=== PATIENT | female | born 1985 | race Caucasian/White ===

== ENCOUNTER 2020-09-12 21:15 | Emergency (ER) | payer MEDICAID, SELFPAY ==
[2020-09-12 21:16] VITALS: BP 122/60; PULSE 94; RESP 30; TEMP 36.2; O2SAT 99; BMI 21.4
--- NOTE | 2020-09-12 22:11 | ED.DCSUM_ITS ---
History of Present Illness Chief Complaint: Seizure Narrative: Patient is a 34-year-old female who states she was having a epileptic Tourette's seizure. On further history it sounds like she has a history of nonepileptic or psychogenic seizures. She had a stressful event. Her boyfriend's brother came over who they have had problems with in the past. She then was jerking and throwing herself back. She did respond to a cold towel. She states this has been intermittently going on for about an hour. She did previously see a psychiatrist or counselor in [place] but currently does not see anyone. She has not been diagnosed with epilepsy she is not on any antiepileptics. She otherwise denies any medical history or recent medical illness. Past Medical History - Allergies and Home Meds Allergies/Adverse Reactions: Allergies Penicillins Allergy (Verified 09/12/20 21:16) Angioedema Primary Care Physician: Jennyfer Woo,Out of [Primary Care Provider] - Past Medical History: - - Nonepileptic seizures Smoking Status: Current every day smoker Review of Systems All systems negative except as indicated General: Denies: Fever Eyes: Denies: Visual changes - bilaterally ENT: Denies: Bilateral ear pain Cardiovascular: Denies: Chest pain Respiratory: Denies: Dyspnea Gastrointestinal: Denies: Nausea, Vomiting Musculoskeletal: Denies: Myalgias, Arthralgias Skin: Denies: Rash Neurological: Denies: Headache Hematologic: Denies: Easy bruising Allergy: Denies: Uticaria Physical Exam Vital Signs/Narrative: Vital Signs Temp Pulse Resp BP Pulse Ox 09/12/20 21:16 97.2 F L 94 30 H 122/60 H 99 Inital Vital Signs reviewed: Yes General: Well nourished Head: Normocephalic Eyes: EOMI ENT: Moist mucous membranes Neck: Supple Cardiovascular: Regular rate Respiratory: No distress Abdomen: Soft Skin: Normal color Neurological: Alert, Oriented x3, Normal Strength, Normal Sensation, - - No focal or lateralizing neurological deficits Psychological: Normal affect Diagnostic/Tx/Re-eval - Medical Decision Making Patient has a normal exam is resting comfortably. No tics or myoclonic activity. I believe this was a psychogenic nonepileptic seizure. She was given Ativan here. She was given a referral to the counseling center and was discha rged home. She does understand to return for new or worsening symptoms. She is agreeable to this plan. ED Disposition - Plan for ED Patient: Disposition: Home or Assisted Living Diagnosis: Psychogenic nonepileptic seizure Instructions: ED Conversion Disdr Conversion Reac Referrals: [facility] Doctor,Out of [Primary Care Provider] - Counseling,Center [GROUP OF PHYSICIANS] -
[2020-09-12] MEDS: LORazepam 1 MG Tablet PO (22:25)
[2020-09-12 22:27] VITALS: BP 97/57; PULSE 77; RESP 16; O2SAT 98
[2020-09-12 22:41] LABS: Bedside Glucose 89 mg/dL (70-110)
== END 2020-09-12 22:36 | disposition home or self-care (01) ==
LOC: ED 22:30
PROVIDERS: Emergency Provider Emergency Medicine
DX: F44.5 Conversion disorder with seizures or convulsions (principal); F17.200 Nicotine dependence, unspecified, uncomplicated
CPT/HCPCS: 82962; 99284

== ENCOUNTER 2020-09-29 22:43 | Emergency (ER) | payer MEDICAID, SELFPAY ==
[2020-09-29 22:44] VITALS: BP 106/58; PULSE 70; RESP 18; TEMP 36.6; O2SAT 99; BMI 21.2
[2020-09-29] MEDS: Naproxen 500 MG Tablet PO (23:26)
[2020-09-29] MEDS: Phenazopyridine 95 MG Tablet 190 MG PO (23:26)
[2020-09-29 23:38] LABS: Color, Urine Yellow (Yellow); Glucose, Dipstick Normal (Normal); Internal QC Validated? YES +Cl - CLEAR BKGD; Ketone-Dipstick 5 mg/dl (Negative); Leukocyte Esterase-Dipstick 500 /ul (Negative); Nitrite-Dipstick Negative (Negative); Occult Blood-Urine 50 /ul (Negative); Pregnancy, Urine Negative Negative; Protein-Dipstick 100 mg/dl (Negative); Specific Gravity, Urine 1.025 (1.002-1.030); Urine Bilirubin Dipstick Negative (Negative); Urine Clarity Clear (Clear); Urine Urobilinogen 1 mg/dl (Normal)
--- NOTE | 2020-09-29 23:41 | ED.DCSUM_ITS ---
- ER Visit Summary Date of Service: 09/29/20 Chief Complaint: Abdominal pain and dysuria History of Present Illness: The patient is a 34 F with no primary care physician. She reports that she has lower abdominal pain began approximately week ago. Is a sharp pain is 1010 worsening to 10 currently. Is worsened by movement or picking up my youngest. Relieved by remaining still. She had nausea without vomiting. No diarrhea. Her last bowel was yesterday. She denies any blood in her stools or black tarry stools. Patient reports that she has had dysuria and frequency over the past 3 days. She just finished her menstrual cycle. However, she reports that it only lasted 3 days. She took a test and it was negative. Physical Examination: Vitals: Stable. Afebrile. General: Well-nourished and well-developed. Head: Normocephalic atraumatic. Neck: Supple, no lymphadenopathy. No JVD. Nontender. Cardiovascular: Regular rate and rhythm. No murmurs. Respiratory: No respiratory distress. Clear to auscultation bilaterally. Abdominal: Soft, mild suprapubic tenderness to palpation, nondistended, normal bowel sounds. No guarding, rebound, or peritoneal signs. Back: Nontender. Extremities: Nontender, no edema. Skin: Normal color, no rash. Neurologic: Alert and oriented ?3. Cranial nerves II through XII are intact. Normal strength and sensation. Psych: Normal affect. Test Results: Urgency test is negative. Urinalysis shows leukocytes, 10-25 white blood cells, 2+ bacteria. Gonorrhea and Chlamydia are pending. Emergency Department Course and Treatment: Patient was given naproxen and Azo p. o. She is resting comfortably. Patient is adamant that she has not been exposed to an STD. She does not want to wait for the results of the gonorrhea and chlamydia test. Treatment Plan: She will be discharged with 3 days of Cipro and Pyridium. Instructed to follow-up with [facility] in 3 to 5 days for another exam. Return to the emergency department for any worsening symptoms. Disposition: To home in improved and stable condition. Impression: 1. UTI. This note was generated with [employer] software. It may contain incorrect words, spelling, and punctuation that were not noted in review of the chart prior to signing ED Disposition - Plan for ED Patient: Instructions: ED Bladder Infection, Female (Adult) Prescriptions: Ciprofloxacin [Cipro] 500 mg PO BID #6 tablet Phenazopyridine HCl [Pyridium] 200 mg PO BID PRN PRN #10 tablet PRN Reason: Pain Referrals: [facility] [NON-STAFF] - 3-5 Days
[2020-09-30 00:01] LABS: Bacteria 2+ /hpf (None Seen); Red Blood Cells-Urine 0-5 SEEN /hpf (0-5); Squamous Epithelial Cells - UA 0-5 SEEN /hpf (5-10); Transitional Epithelial - Ur 0-5 SEEN /hpf (0-5); White Blood Cells 10-25 SEEN /hpf (0-5)
[2020-09-30 00:02] LABS: Mucous, Urine 2+ /hpf (<or=2+)
[2020-09-30] MEDS: Ciprofloxacin 500 MG Tablet PO (00:22)
[2020-09-30 00:23] VITALS: PULSE 94; RESP 16; O2SAT 100
[2020-09-30 01:29] LABS: Chlamydia Trachomatis by PCR Negative (Negative); Neisserai gonorrhoeae by PCR Negative (Negative); Probe Check PASS; Sample Adequacy Control PASS; Specimen Processing Control PASS
== END 2020-09-30 00:23 | disposition home or self-care (01) ==
LOC: ED 23:21
PROVIDERS: Emergency Provider Emergency Medicine
DX: N39.0 Urinary tract infection, site not specified (principal); F17.200 Nicotine dependence, unspecified, uncomplicated
CPT/HCPCS: 81001; 81025; 87491; 87591; 99283

== ENCOUNTER 2021-01-05 22:08 | Emergency (ER) | payer MEDICAID, SELFPAY ==
[2021-01-05 22:09] VITALS: BP 111/60; PULSE 63; RESP 18; TEMP 35.8; O2SAT 100; BMI 18.2
[2021-01-05 23:00] LABS: Mucous, Urine 0 SEEN /hpf (<or=2+)
--- NOTE | 2021-01-05 23:02 | ED.VIS.FEGU ---
HPI HPI - Female History of Present Illness Chief Complaint: Informant: patient Associated Symptoms Associated Symptoms: Positive for Frequency, Urgency and Missed Period; Negative for Dysuria and Hematuria Last known menstrual period: approx 11/24 Test: Positive and Negative Narrative Narrative: Patient states she missed her menstrual cycle, so she was concerned she is . She has done several urine test at home, some of them of been negative some of them positive. She states since I am on antibiotics for my trichomoniasis, I want to make sure I am not so it is safe to continue taking it. She denies any abdominal pain, vaginal bleeding or discharge now that she is on an antibiotic, she has some urinary frequency, no fevers, near syncopal symptoms, vomiting, or other systemic symptoms. PFSH PFS Medical History Anxiety Home Medications ciprofloxacin HCl 500 mg PO BID #6 tab 09/30/20 [Rx Last Taken Unknown] phenazopyridine 200 mg PO BID PRN PRN #10 tablet 09/30/20 [Rx Last Taken Unknown] Allergy/AdvReac Type Severity Reaction Status Date / Time Penicillins Allergy Angioedema Verified 09/29/20 22:47 Social History Smoking Status: Current every day smoker tobacco type: cigarettes ROS ROS ED Constitutional Constitutional ED: Denies chills or fever(s) Eyes Eyes: Denies change in vision or diplopia ENT ENT ED: Denies rhinorrhea or sore throat Cardiovascular Cardiovascular: Denies chest pain or palpitations Respiratory/Chest Respiratory/Chest: Denies cough or dyspnea Gastrointestinal Gastrointestinal: Denies abdominal pain, diarrhea, nausea or vomiting Genitourinary Genitourinary ED: Reports urinary frequency and urinary urgency; Denies dysuria or hematuria Musculoskeletal Musculoskeletal: Denies back pain or neck pain Integumentary Denies abscess or rash Neurologic Neurologic: Denies headache(s), paresthesias or weakness Psychiatric Psychiatric: Denies anxiety or suicidal thoughts EXAM Physical Exam Const Vital Signs: 01/05/21 22:09 Temperature 96.4 F L Temperature Source Temporal Pulse Rate 63 Respiratory Rate 18 Blood Pressure 111/60 Blood Pressure Mean 77 Pulse Ox 100 Oxygen Delivery Method Room Air Positive well nourished and well developed General Appearance ED: well developed and NAD HEENT Reports moist mucous membranes normocephalic and atraumatic Eyes PERRL and EOMs intact bilaterally Neck full ROM and supple Resp normal respiratory effort and clear to auscultation bilaterally Cardio regular rate, regular rhythm and no murmurs GI non-tender and non-distended Auscultation: normoactive bowel sounds Palpation: soft Back/Spine no CVA tenderness General Back: other FROM Extremity normal to inspection General Extremety ED: Negative for edema, pulses abnormal or tenderness General Extremity: Negative for edema or pulses abnormal Neuro oriented x3, CN's II-XII intact bilaterally and no sensory deficits noted Sensorium / Orientation: awake and alert Motor Exam: strength 5/5 throughout Skin no rashes or lesions noted and no wounds MDM MDM MDM Narrative Medical decision making narrative: Urinalysis shows no signs of infection and her test is negative. Patient advised to follow-up with her [employer], or she may repeat a test in 1 week. Lab Data Attestation: I reviewed the patient's lab results. Labs: Laboratory Results - last 24 hr 01/05/21 22:55 Urine Color Yellow Urine Clarity Clear Urine pH 7.0 Ur Specific [place] 1.010 Urine Protein 30 H Urine Glucose (UA) Normal Urine Ketones Negative Urine Occult Blood Negative Urine Nitrite Negative Urine Bilirubin Negative Urine Urobilinogen Normal Ur Leukocyte Esterase Negative Urine RBC 0-5 SEEN Urine WBC 0-5 SEEN Ur Squamous Epith Cells 0-5 SEEN Urine Bacteria 0 SEEN Urine Mucus 0 SEEN Urine Test Negative Discharge Plan Triage Chief Complaint: ED Provider: Grey Linder Dx/Rx/DC Orders Clinical Impression: Amenorrhea Instructions: ED Amenorrhea Prescriptions: No Action phenazopyridine 200 MG tablet 200 mg PO BID PRN PRN (Reason: Pain) Qty: 10 RF: 0 ciprofloxacin HCl 500 MG tablet 500 mg PO BID Qty: 6 RF: 0 Primary Care Provider: Care Physician,No Primary Referrals: Care Physician,No Primary [Primary Care Provider] - Doctor,Your [STAFF PHYSICIAN] - 1 Week (actionscript developer) Activity Restrictions/Additional Instructions: Your test was negative. If you do not have a menstrual cycle in the next week, repeat a test. Disposition Disposition: Home, Self Care
[2021-01-05 23:13] LABS: Color, Urine Yellow (Yellow); Glucose, Dipstick Normal (Normal); Ketone-Dipstick Negative (Negative); Leukocyte Esterase-Dipstick Negative /ul (Negative); Nitrite-Dipstick Negative (Negative); Occult Blood-Urine Negative /ul (Negative); Protein-Dipstick 30 mg/dl (Negative); Urine Bilirubin Dipstick Negative (Negative); Urine Clarity Clear (Clear); Urine Urobilinogen Normal (Normal)
[2021-01-05 23:14] LABS: Internal QC Validated? YES +Cl - CLEAR BKGD; Pregnancy, Urine Negative Negative
[2021-01-05 23:23] LABS: Squamous Epithelial Cells - UA 0-5 SEEN /hpf (5-10); White Blood Cells 0-5 SEEN /hpf (0-5)
[2021-01-05 23:24] LABS: Red Blood Cells-Urine 0-5 SEEN /hpf (0-5)
[2021-01-05 23:25] LABS: Bacteria 0 SEEN /hpf (None Seen)
[2021-01-05 23:38] VITALS: RESP 16
== END 2021-01-05 23:39 | disposition home or self-care (01) ==
PROVIDERS: Emergency Provider Emergency Medicine
DX: N91.2 Amenorrhea, unspecified (principal); F17.210 Nicotine dependence, cigarettes, uncomplicated
CPT/HCPCS: 81001; 81025; 99282

== ENCOUNTER 2021-05-26 23:35 | Outpatient (CLI) | payer MEDICAID, SELFPAY ==
[2021-05-26 23:50] VITALS: BP 98/53; PULSE 88; TEMP 36.2
[2021-05-26 23:52] VITALS: PULSE 89; O2SAT 100
[2021-05-26 23:57] VITALS: PULSE 92; O2SAT 100
[2021-05-27 00:03] VITALS: BMI 21.7
[2021-05-27] MEDS: Acetaminophen 500 MG Tablet 1000 MG PO (01:15)
[2021-05-27 01:32] LABS: Color, Urine Yellow (Yellow); Glucose, Dipstick 250 mg/dl (Normal); Ketone-Dipstick Negative (Negative); Leukocyte Esterase-Dipstick Negative /ul (Negative); Nitrite-Dipstick Negative (Negative); Occult Blood-Urine Negative /ul (Negative); Protein-Dipstick 15 mg/dl (Negative); Urine Bilirubin Dipstick Negative (Negative); Urine Clarity Cloudy (Clear); Urine Urobilinogen Normal (Normal)
[2021-05-27 02:00] VITALS: BP 100/53; PULSE 80; TEMP 36.6; O2SAT 99
[2021-05-27 02:02] VITALS: BP 100/53; PULSE 81; O2SAT 97
--- NOTE | 2021-06-27 16:25 | OB.TRI.NOTE ---
HPI - General HPI Narrative SU DIAZ, is a 35 F G1 who presents with unilateral headache Less than 36 wks pregnanct, no bleeding, no LOF, no ctxs PFSH PFSH Medical History Anxiety Home Medications multivitamin [Chewable Multi Vitamin] 1 tab PO DAILY 05/27/21 [History Last Taken 05/26/21 12:00 1 tablet] Allergy/AdvReac Type Severity Reaction Status Date / Time Penicillins Allergy Angioedema Verified 09/29/20 22:47 Social History Smoking Status: Current every day smoker tobacco type: cigarettes ROS ROS Narrative Negative for other sx of preeclampsia. Physical Exam Narrative Patient was not seen. Assessment & Plan (1) Headache: COMMENT: - Labor & preeclampsia excluded.
== END 2021-05-27 02:35 | disposition home or self-care (01) ==
LOC: WPOUT 23:42 → WP 23:43
PROVIDERS: Visit Provider Obstetrics & Gynecology Gynecology
DX: O26.899 Other specified pregnancy related conditions, unspecified trimester (principal); O99.330 Smoking (tobacco) complicating pregnancy, unspecified trimester; R51.9 Headache, unspecified; F17.210 Nicotine dependence, cigarettes, uncomplicated; Z3A.00 Weeks of gestation of pregnancy not specified
CPT/HCPCS: 59025; 59050; 81002; 99218; G0378